=== PATIENT | male | born 1945 | race Caucasian/White ===

== ENCOUNTER → 2019-08-13 16:47 | Outpatient (CLI) | payer MEDICARE, SELFPAY ==
[2019-08-12 15:17] VITALS: BMI 27.2
--- NOTE | 2019-08-13 16:50 | RAD_ITS ---
STUDY: X-RAY - LUMBAR SPINE REASON FOR EXAM: Male, 74 years old. LOW BACK PAIN, NO KNOWN INJURY TECHNIQUE: 3 view(s) of the lumbar spine were obtained. COMPARISON: None FINDINGS: Diffuse and significant abnormal sclerosis throughout the spine and pelvis is compatible with blastic metastatic disease of unknown origin. Usually in a male of this chronologic age the underlying malignancy is related to the prostate. Mild to moderate multilevel disc space narrowing and associated degenerative changes are present. There is slight levoscoliosis and slight straightening of the lumbar lordosis. No visualized acute fracture. RAD/Lumbar Spine 2 or 3 Views IMPRESSION: Diffuse and significant abnormal sclerosis throughout the spine and pelvis is compatible with blastic metastatic disease of unknown origin. Usually in a male of this chronologic age the underlying malignancy is related to the prostate. Electronically Signed: Devon Jo MD at 17:54 EDT , Service support ,
== END ==
PROVIDERS: Family Provider Family Medicine; PCP Family Medicine; Referring Provider Anesthesiology Pain Medicine; Visit Provider Anesthesiology Pain Medicine
DX: M54.9 Dorsalgia, unspecified (principal)
CPT/HCPCS: 72100

== ENCOUNTER → 2019-08-14 15:42 | Outpatient (CLI) | payer MEDICARE, SELFPAY ==
[2019-08-12 15:17] VITALS: BMI 27.2
--- NOTE | 2019-08-14 15:44 | CT_ITS ---
We are attempting to reach an attending provider to discuss findings. An addendum with communication details will be sent when the communication is complete. STUDY: CT CHEST WITH CONTRAST REASON FOR EXAM: Male, 74 years old. History of prostate cancer. History of pulmonary embolus. Evaluation for metastatic disease. RADIATION DOSAGE (If Supplied By Facility): CTDIvol = ( 15.37 ) mGy, DLP = ( 1578.39 ) mGycm TECHNIQUE: Transaxial imaging was performed following intravenous administration of IV Isovue 300 100. Multiplanar coronal and sagittal images were reformatted. Individualized dose optimization techniques were used for this CT. COMPARISON: None. FINDINGS: Pleural base mass like density of the axillary portion of the right upper lobe that measures approximately 2.4 x 1.8 x 2.1 cm that as additional spiculations to the pleura and an elongated broad linear extension toward the oblique fissure. Ovoid noncalcified nodule of the right middle lobe measuring 2.3 x 4.6 x 4.4 mm, image 91 series 6. Mild posterior right lower lobe atelectatic or chronic changes. The left lung is expanded and clear. Negative for pleural effusion. Normal heart and pericardium. Coronary calcifications. Normal mediastinum. Normal hilar regions. Nonocclusive embolus in the right lower lobe artery with occlusive tube partly occlusive embolus in at least 2 segmental branches of the right lower lobe filling defect in at least one right upper lobe artery, anterior left upper lobe artery, lingular artery and at least one branch of the left lower lobe artery. There is atherosclerotic calcification of the aortic arch with tortuosity and elongation of the aortic arch and descending thoracic aorta. Diffuse sclerotic and focal sclerotic lesions in all thoracic and upper lumbar vertebral bodies, sternum, manubrium scapula a and clavicles. Diffuse sclerotic lesions in the included humeral heads. Widespread sclerotic lesions of the ribs bilaterally. Negative for pathologic fracture. There is no demonstrated abnormality of the visualized upper abdomen. CT/Chest WITH Contrast IMPRESSION: Positive for ongoing pulmonary embolus in the right lower lobe artery extending into multiple segmental branches and at least one embolus to a right upper lobe artery. Embolus to anterior left upper lobe artery, lingular artery and at least one branch of the left lower lobe artery. Note that this exam is not a CTA and may not adequately exclude other peripheral pulmonary emboli. Pleural-based masslike density in the axillary portion of the right upper lobe which does not have the typical appearance of a metastatic lesion and may be a pulmonary infarct/Beal's hump. Indeterminate noncalcified 2.3 x 4.6 x 4.4 mm noncalcified nodule of the right middle lobe. No additional pulmonary masses or nodules. Extensive widespread osteoblastic metastatic disease of the thoracic spine, ribs, scapulas, manubrium, sternum and clavicles. Negative for pathologic fracture. Electronically Signed: Monica Hahn MD at 17:10 EDT , Service support ,
--- NOTE | 2019-08-14 15:44 | CT_ITS ---
We are attempting to reach an attending provider to discuss findings. An addendum with communication details will be sent when the communication is complete. STUDY: CT ABDOMEN AND PELVIS WITH CONTRAST REASON FOR EXAM: Male, 74 years old. History of prostate cancer RADIATION DOSAGE (If Supplied By Facility): CTDIvol = ( 15.37 ) mGy, DLP = ( 1578.39 ) mGycm TECHNIQUE: Transaxial images were obtained from the dome of the diaphragm to the symphysis pubis without oral contrast. IV 100mL Isovue-300 100 was administered. Sagittal and coronal images were reconstructed. Individualized dose optimization techniques were used for this CT. COMPARISON: Chest CT of 08/14/2019 FINDINGS: Lung bases described on chest CT of 08/14/2019 Normal liver. Normal gallbladder and extrahepatic biliary system. Normal spleen. Normal pancreas. Normal bilateral adrenal glands. Small calcifications are seen in the inferior right kidney. There is a small simple bilateral renal cysts. No hydronephrosis. Normal visualized stomach. No small bowel wall thickening or dilation. Normal colon. The appendix is visualized and appears normal. There is diffuse atherosclerotic calcification of the abdominal aorta, without a demonstrated aneurysm. Lobular filling defect in the lower IVC and left common iliac vein are identified. Patient has known pulmonary embolism/venous thromboembolism disease, according to history provided. Normal retroperitoneum. Normal urinary bladder. No pelvic sidewall adenopathy or iliac chain adenopathy. Anterior abdominal wall hernia containing small bowel note no evidence of hernia sac fluid or bowel wall thickening. Widespread osseous sclerosis involving multiple ribs, thoracolumbar spine, pelvis and proximal bilateral femurs. CT/Abdomen/Pelvis W IV Cont ONLY IMPRESSION: 1. Multifocal osteoblastic metastasis. 2. Ileo caval (left common iliac vein/IVC) thrombus. Patient has known pulmonary embolism. 3. Small periumbilical hernia containing small bowel but no evidence of bowel obstruction. 4. Nonobstructing right nephrolithiasis. 5. Simple bilateral renal cysts. Electronically Signed: Chuy Noyola MD ([place]) at 14:22 EST , Service support ,
== END ==
PROVIDERS: Family Provider Family Medicine; PCP Family Medicine; Referring Provider Internal Medicine Hematology & Oncology; Visit Provider Internal Medicine Hematology & Oncology
DX: C61 Malignant neoplasm of prostate (principal); C79.51 Secondary malignant neoplasm of bone; C77.9 Secondary and unspecified malignant neoplasm of lymph node, unspecified
CPT/HCPCS: 71260; 74177; Q9967

== ENCOUNTER 2019-08-14 18:17 | Observation (INO) | payer MEDICARE, SELFPAY ==
[2019-08-12 15:17] VITALS: BMI 27.2
[2019-08-14 18:18] VITALS: BP 118/76; PULSE 93; RESP 17; TEMP 36.4; O2SAT 95; BMI 27.1
--- NOTE | 2019-08-14 18:39 | ED.VISSUMM ---
- ER Visit Summary Date of Service: 08/14/19 Chief Complaint: Back pain History of Present Illness: The patient is a 74 M who presents with back pain that became worse today. Patient states it is in his lower thoracic area. Patient had an outpatient CT scan of his chest today which showed multiple pulmonary emboli in the segmental branches of the right lower lobe and at least one embolus in the right upper lobe. There is also an embolus in the left upper lobe, lingual artery, and one branch of the left lower lobe. Patient denies any chest pain. Patient denies any shortness of breath that is worse than usual. Patient admits to some mild nausea but denies any vomiting. Physical Examination: Vital signs are stable. Patient is afebrile. Patient is in no acute distress. Oral mucosa is pink and moist. Neck is supple. Trachea is midline. There is no JVD noted. Heart was regular rate and rhythm. Lungs are clear and equal bilaterally. Abdomen is soft. Bowel sounds are normal. There is no tenderness. There is no guarding noted. Skin is warm dry. Cranial nerves II through XII are intact. There are no focal motor or sensory deficits noted. Extremities are intact. There is no tenderness or edema. Test Results: Outpatient CT report was reviewed which showed multiple bilateral pulmonary emboli. Patient states he had a INR checked this morning and was 3.2. CBC showed a mild anemia with hemoglobin of 9.6 and hematocrit 31.8. Basic metabolic profile was essentially within normal limits. INR was repeated here and was 2.3. Emergency Department Course and Treatment: Patient was given a dose of Lovenox here. Case was discussed with the hospitalist. Patient will be admitted to the hospital for observation. Disposition: Admit to hospital Impression: Multiple pulmonary emboli This note was generated with [employer] dictation software. It may contain incorrect words, spelling, and punctuation that were not noted in review of the chart prior to signing ED Disposition - Plan for ED Patient: Disposition: Acute Care Hospital [facility] Diagnosis: Multiple pulmonary emboli Referrals: Praful Blevins MD [Primary Care Provider] -
[2019-08-14] MEDS: Enoxaparin 100 MG/ML Syringe 90 MG SC (18:56)
[2019-08-14 19:16] LABS: Absolute Lymphocyte Count 1.12 X10^3/uL (0.83-4.51); Absolute Neutrophil Count 3.7 X10^3/uL (2.0-7.7); Basophil# 0.02 X10^3/uL; Basophil% 0.4 % (0-1); Eosinophils% 3.6 % (0-5); Hematocrit 31.8 % (40-54); Hemoglobin 9.6 g/dL (13.0-16.5); Lymphocyte # 1.12 X10^3/ul (4.0); Lymphocyte % 20.1 % (19-41); Mean Corp Hgb Conc 30.2 g/dL (32-36); Mean Corpuscular Hgb 27.2 pg (27.0-32.0); Mean Corpuscular Volume 90.1 fL (80-94); Mean Platelet Vol. 9.2 fl (6.2-12.0); Monocyte# 0.43 X10^3/uL; Monocyte% 7.7 % (0-10); NRBC Flagged by Analyzer 0.4 % (0-5); Neutrophil # 3.73 X10^3/uL (2.7-7.7); Neutrophil % 67.1 % (47-70); Platelet Count 211 K/mm3 (150-450); RBC Distribution Width CV 14.7 % (11.6-14.6); RBC Distribution Width SD 48.3 fl (35.1-43.9); Red Blood Count 3.53 M/mm3 (4.6-6.2); White Blood Count 5.6 K/mm3 (4.4-11.0)
[2019-08-14 19:23] LABS: Anion Gap 8 (5-15); BUN 23 mg/dL (7-18); BUN/Creat Ratio 33.6 RATIO (10-20); Calcium,Total 8.1 mg/dL (8.5-10.1); Chloride 108 mmol/L (98-107); Creatinine, Serum 0.68 mg/dL (0.70-1.30); EST Glomerular Filtration Rate 120 mL/min (>60); Est Glom Filt Rate - Afr Amer 145 mL/min (>60); Estimated Creatinine Clearance 66.92 ml/min; Glucose 122 mg/dL (74-106); Potassium 3.7 mmol/L (3.5-5.1); Sodium Level 140 mmol/L (136-145)
[2019-08-14 19:41] LABS: International Normalized Ratio 2.3
[2019-08-14 19:42] LABS: Partial Thromboplast Time 51.2 Seconds (24.1-36.2)
--- NOTE | 2019-08-14 20:00 | PCM.HP.STD ---
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 Because of his metastatic prostate cancer, patient had a full body CT. Because his chest CT showed multiple PEs patient was instructed to come to the emergency department. Patient denies any new symptoms. Denies any shortness of breath. He has generalized body pain he does not think it any difference from previous. On the day of presentation his INR was 3.2 so he was told to hold his Coumadin. At the Emergency Department his INR was 2.3. Past Medical History Past Medical History (Chronic Problems): Chronic Problems (Last Reviewed 08/14/19 @ 22:27 by Andrey Strickland MD) Prostate cancer (Chronic) Bone metastases (Chronic) Regional lymph node metastasis present (Chronic) Pulmonary embolism (Chronic) Medical History: Medical History (Last Reviewed 08/14/19 @ 22:27 by Andrey Strickland MD) Allergic rhinitis J30.9 BENIGN PROSTATIC HYPERTROPHY Cancer of prostate C61 Erectile dysfunction N52.9 GERD (gastroesophageal reflux disease) K21.9 High triglycerides E78.1 Neuropathy G62.9 Nocturia R35.1 Rising PSA level R97.20 TRENT (stress urinary incontinence), male N39.3 Hypertension I10 Allergies losartan Adverse Reaction (Severe, Verified 08/14/19 19:08) Rash Home Medications: Ambulatory Orders Medication Instructions Recorded Oxycodone HCl/Acetaminophen 1 tab PO BID 07/23/19 [Percocet 5/325] Amlodipine [Norvasc] 2.5 mg PO DAILY 07/28/19 Temazepam [Restoril] 30 mg PO QHS PRN PRN 07/28/19 Warfarin Sodium [Jantoven] 3 mg PO DAILY 08/12/19 Acetaminophen [Tylenol Extra 500 mg PO BID 08/14/19 Strength] Acetaminophen [Tylenol] 1,000 mg PO DAILY 08/14/19 Calcium Carbonate/Vitamin D3 1 tab PO DAILY 08/14/19 [Calcium 600 + Vit D Tablet] Denosumab [Xgeva] 120 mg SQ UD 08/14/19 Lupron Depot 1 injectable IM UD 08/14/19 Warfarin Sodium [Jantoven] 1.5 mg PO FR 08/14/19 Surgical History: Surgical History (Last Reviewed 08/14/19 @ 22:27 by Andrey Strickland MD) History of knee surgery Z98.890 RIGHT KNEE History of prostatectomy Z90.79 07-22-2012 Dr. Tony Penaloza Procedure done robotically Smoking Status: Never smoker Alcohol: None - *Family History Maternal Family History: Family History (Last Reviewed 08/14/19 @ 22:27 by Andrey Strickland MD) Sister Malignant neoplasm of female breast Mother Hypertension Review of Systems Constitutional: Denies: Chills, Fever, Weight Change HEENT: Denies: Head Aches, Sinus Congestion, Sinus Drainage Cardiovascular: Denies: Chest Pain, Palpitations Respiratory: Denies: Cough, Shortness of breath at rest, Sputum production Gastrointestinal: Reports: Abdominal Pain. Denies: Nausea, Vomiting Genitourinary: Denies: Dysuria Musculoskeletal: Reports: Muscle pain. Denies: Joint Pain, Joint Tenderness Skin: Denies: Rash, Wounds Neurological: Denies: Numbness, Tingling, Focal weakness Psychiatric: Denies: Anxiety, Depression, Homicidal Ideations, Suicidal Ideations Hematologic/ Lymphatic: Denies: Easy Bruising, Easy Bleeding VTE Information - Inpt Only VTE Present on Admission: Yes - Acute multiple PEs VTE Mechan Device Prophylaxis: None VTE Pharm Prophylaxis ordered?: No Reason prophylaxis not ordered:: Treatment Not Indicated - Started on Lovenox for acute PE. Patient Problems: Active and Suspected Problems (Last Reviewed 08/14/19 @ 22:27 by Andrey Strickland MD) Multiple pulmonary emboli (Acute) - Physical Exam Vitals/I&O's: Vital Signs Temp Pulse Resp BP Pulse Ox 97.5 F L 93 17 118/76 95 08/14/19 18:18 08/14/19 18:18 08/14/19 18:18 08/14/19 18:18 08/14/19 18:18 Oxygen Delivery Method Room Air Weight: 85.729 kg Body Mass Index (BMI) 27.1 General: Alert, Oriented x3, Cooperative HEENT: Atraumatic, PERRLA, EOMI, Normocephalic Neck: Supple, No JVD, Negative Carotid Bruits Lungs: Clear to auscultation, Normal air movement Cardiovascular: Regular rate, No murmurs Abdomen: Bowel Sounds Present, Soft, Non Tender Extremities: No edema, Capillary Refill Less than 3 Seconds Skin: No rashes, No breakdown Musculoskeletal: No Tenderness to Palpation of Joints or Extremities Neurological: Cranial nerves II-XII grossly intact Psych/Mental Status: Normal Affect, Appropriate Laboratory Results 08/14/19 19:00: WBC 5.6, RBC 3.53 L, Hgb 9.6 L, Hct 31.8 L, MCV 90.1, MCH 27.2, MCHC 30.2 L, RDW Std Deviation 48.3 H, RDW Coeff of Daria 14.7 H, Plt Count 211, MPV 9.2, Immature Gran % (Auto) 1.100 H, Neut % (Auto) 67.1, Lymph % (Auto) 20.1, [place] % (Auto) 7.7, Eos % (Auto) 3.6, Baso % (Auto) 0.4, Absolute Neuts (auto) 3.7, Absolute Lymphs (auto) 1.12, Nucleated RBC % 0.4 08/14/19 19:00: PT 25.0 H, INR 2.3, APTT 51.2 H 08/14/19 19:00: Sodium 140, Potassium 3.7, Chloride 108 H, Carbon Dioxide 24.0, Anion Gap 8, BUN 23 H, Creatinine 0.68 L, Estim Creat Clear Calc 66.92, Est GFR (MDRD) Af Amer 145, Est GFR (MDRD) Non-Af 120, BUN/Creatinine Ratio 33.6 H, Glucose 122 H, Calcium 8.1 L Assessment/Plan All Active Problems (Last Reviewed 08/14/19 @ 22:27 by Andrey Strickland MD) Multiple pulmonary emboli (Acute) The patient is a 74 year old M with a significant history of right upper lobe lung PE on Coumadin;metastatic prostate adenocarcinoma s/p radical prostatectomy with multiple PEs. Multiple pulmonary emboli Outpatient chest CT showed multiple pulmonary emboli and a pleural-based masslike density in the axillary portion of the right upper lobe. Radiologist thinks upper lobe does not have the typical appearance of a metastatic lesion and may be a pulmonary infarct/[facility]'s home. Will get an echo Placed on pcu on telemetry. Received Lovenox at the ED. continue Lovenox. Home Coumadin. Likely Coumadin failure since INR is therapeutic to supratherapeutic yet patient had multiple clots. Health Systems Analyst/oncology consult. Lung nodule There was an indeterminate noncalcified 2.3 x 4.6 x 4.4 mm noncalcified nodule of the right middle lobe. With his metastatic disease I do not believe this may need any further interventions. Oncologist consulted. Metastatic Prostate Cancer On home Denosumab and Lupron Depot Oncology consult Home pain regimen continued Insomnia Restoril continued Hypertension On presentation his blood pressure was stable in regard to his age. Amlodipine continued Trend blood pressure and adjust blood pressure medications. DVT prophylaxis Not indicated since patient is on therapeutic dose of Lovenox for acute multiple PEs. Code Visit OBSV E&M: [id number] Initial observation care L3
[2019-08-14 20:42] VITALS: BP 149/76; PULSE 87; RESP 18; O2SAT 93
[2019-08-14 21:03] VITALS: BMI 26.9
[2019-08-14 21:15] VITALS: BP 130/71; PULSE 79; RESP 20; TEMP 37.3; O2SAT 95
--- NOTE | 2019-08-14 21:28 | ECHOD_ITS ---
Reason For Study: EMBOLI Procedure This was a 2D Doppler, Color Flow transthoracic echocardiogram. The exam was of adequate technical quality. Exam performed portable in patient room. Left Ventricle Normal LV size. Left ventricular systolic function is normal. The estimated ejection fraction is 65 %. The global longitudinal strain = -22 % (normal). No evidence for diastolic dysfunction. No regional wall motion abnormalities noted. Right Ventricle Normal RV size. Normal systolic function. Atria The left atrium is mildly enlarged. Normal right atrium. No doppler evidence for ASD. Bubble contrast study negative for right to left interatrial shunt. Mitral Valve There is no mitral annular calcification. Mild diffuse mitral valve thickening. Trivial mitral valve insufficiency. Tricuspid Valve Normal tricuspid valve. Trivial tricuspid valve insufficiency. Right ventricular systolic pressure estimated to be 37 mmHg. Aortic Valve Trisinus/trileaflet aortic valve. Normal aortic valve. Pulmonic Valve The pulmonic valve is not well visualized. Great Vessels Mildly dilated aortic root. Pericardium/Pleural No pericardial effusion. Medication Performed a rapid injection of agitated mix of 9 cc saline and 1cc air to assess for atrial septal defect. MMode/2D Measurements & Calculations LVIDd: 5.1 cm IVSd: 0.90 cm Ao root diam: 4.1 cm LVIDs: 3.4 cm LVPWd: 1.0 cm FS: 33.0 % LAV(MOD-bp): 65.3 ml LA A4 area: 20.2 cm2 LA dimension(2D): 4.3 cm LAV(MOD-bp) Indexed: 32.0 ml/m2 LAV(MOD-sp2): 71.5 ml LAV(MOD-sp4): 58.5 ml RA A4 area: 13.7 cm2 Time Measurements MV dec time: 0.33 sec Doppler Measurements & Calculations MV E max patrick: 57.8 cm/sec Lat Peak E' Patrick: 11.6 cm/sec Med Peak E' Patrick: 7.1 cm/sec MV A max patrick: 95.0 cm/sec E/E' lat: 5.0 E/E' med: 8.1 MV E/A: 0.61 Ao V2 max: 150.0 cm/sec LV V1 max: 143.3 cm/sec PA V2 max: 95.8 cm/sec Ao max P.0 mmHg LV V1 max P.2 mmHg TR max patrick: 289.5 cm/sec TR max P.6 mmHg Interpretation Summary Left ventricular systolic function is normal. The estimated ejection fraction is 65 %. The global longitudinal strain = -22 % (normal). The left atrium is mildly enlarged. Mild diffuse mitral valve thickening. Trivial mitral valve insufficiency. Trivial tricuspid valve insufficiency. Mildly dilated aortic root. Right ventricular systolic pressure estimated to be 37 mmHg. No evidence for diastolic dysfunction. Bubble contrast study negative for right to left interatrial shunt. Ordering Physician: Andrey Strickland Referring Physician: Kris Blevins Performed By: Anabella Rahman RDCS, RVT
[2019-08-14 21:31] VITALS: BMI 26.9
[2019-08-14 22:22] VITALS: PULSE 86
[2019-08-14] MEDS: Acetaminophen 500 MG Tablet PO (23:00)
[2019-08-14] MEDS: oxyCODONE 5 MG Tablet PO (23:01)
[2019-08-14 23:05] VITALS: PULSE 87
[2019-08-15] VITALS (8 sets, daily range): BP systolic 122–136; BP diastolic 72–77; PULSE 71–89; RESP 16; TEMP 36.8; O2SAT 91–97
[2019-08-15] MEDS: Enoxaparin 100 MG/ML Syringe 90 MG SC (06:00)
[2019-08-15 06:06] LABS: Absolute Lymphocyte Count 1.23 X10^3/uL (0.83-4.51); Absolute Neutrophil Count 2.9 X10^3/uL (2.0-7.7); Basophil# 0.02 X10^3/uL; Basophil% 0.4 % (0-1); Eosinophil# 0.16 X10^3/uL; Eosinophils% 3.5 % (0-5); Hematocrit 30.1 % (40-54); Hemoglobin 9.2 g/dL (13.0-16.5); Lymphocyte # 1.23 X10^3/ul (4.0); Lymphocyte % 26.6 % (19-41); Mean Corp Hgb Conc 30.6 g/dL (32-36); Mean Corpuscular Hgb 27.6 pg (27.0-32.0); Mean Corpuscular Volume 90.4 fL (80-94); Mean Platelet Vol. 9.2 fl (6.2-12.0); Monocyte# 0.31 X10^3/uL; Monocyte% 6.7 % (0-10); NRBC Flagged by Analyzer 0 % (0-5); Neutrophil # 2.85 X10^3/uL (2.7-7.7); Neutrophil % 61.7 % (47-70); Platelet Count 200 K/mm3 (150-450); RBC Distribution Width CV 14.6 % (11.6-14.6); Red Blood Count 3.33 M/mm3 (4.6-6.2); White Blood Count 4.6 K/mm3 (4.4-11.0)
[2019-08-15] MEDS: oxyCODONE 5 MG Tablet PO (09:49)
[2019-08-15] MEDS: amLODIPine 2.5 MG Tablet PO (09:51)
[2019-08-15] MEDS: Acetaminophen 500 MG Tablet PO (09:52)
[2019-08-15] MEDS: Calcium Carb/Vitamin D 1 TABLET Tablet PO (09:52)
--- NOTE | 2019-08-15 11:50 | DCINST_ITS ---
- Discharge Diagnoses Current Active Problems: Current Active and Chronic Problems (Last Reviewed 08/14/19 @ 22:27 by Andrey Strickland MD) Multiple pulmonary emboli (Acute) Prostate cancer (Chronic) Bone metastases (Chronic) Regional lymph node metastasis present (Chronic) Pulmonary embolism (Chronic) You will use the following diet at home:: No restrictions Your food should be the consistency of: Regular Your liquids should be the consistency of: Regular/Thin Discharge Activity: Return to Normal Activity Allergies/Adverse Reactions: Allergies losartan Adverse Reaction (Severe, Verified 08/14/19 19:08) Rash Medications to take at Discharge Oxycodone HCl/Acetaminophen [Percocet 5-325] 1 tab PO BID 07/23/19 Amlodipine [Norvasc] 2.5 mg PO DAILY 07/28/19 Temazepam [Restoril] 30 mg PO QHS PRN PRN 07/28/19 Acetaminophen [Tylenol] 1,000 mg PO DAILY 08/14/19 Acetaminophen [Tylenol] 500 mg PO BID 08/14/19 Calcium Carbonate/Vitamin D3 [Calcium 600 + Vit D Tablet] 1 tab PO DAILY 08/14/19 Denosumab [Xgeva] 120 mg SQ UD 08/14/19 Lupron Depot 1 injectable IM UD 08/14/19 Enoxaparin [Lovenox] 90 mg SUBCUT Q12 #28 syringe 08/15/19 The following prescriptions were given: Enoxaparin [Lovenox] 90 mg SUBCUT Q12 #28 syringe Transmission Status: Pending to [id number] [place] [address] Primary Care Physician: Praful Blevins MD [Primary Care Provider] - Please follow up with your Primary Care Physician in: 1-2 weeks Test Results: Test results from this visit will be discussed in further detail at your follow- up appointment, if applicable. Please Follow Up With: Jorge Pantoja MD When: 1-2 weeks Proposed Discharge Date: 08/15/19
--- NOTE | 2019-08-15 12:49 | CON.PCM_ITS ---
Subjective Date of Service:: 08/15/19 Chief Complaint: PE History of Present Illness: Mr. Lyle Mac is a very pleasant 74-year-old male with a PMH positive for HTN, PE and metastatic prostate cancer. H/o prostate ca as follows: May 2012: Diagnosed with prostate adenocarcinoma Primitivo combined score 7 (3+4) involving 40% of the specimen from the right prostate (4/4 cores). Diagnosis was made after finding an elevated PSA on screening, to his recollection was less than 10. July 2012 underwent radical prostatectomy with bilateral pelvic lymph node dissection revealing prostate adenocarcinoma, Burt combined score 7, invo lving 18% of the prostate, extraprostatic extension evident in the posterior aspect of the right lobe and right seminal vesicle soft tissue with a positive margin 0.005 cm long adjacent to the right seminal vesicle. 11 dissected lymph nodes were negative for metastatic cancer and pathologic stage III and was T3B,N0. Surgery was at [facility]. Postoperatively he was followed up. 2012: PSA did decline to less than 1 but was never undetectable. 2013: Rising PSA treated with external beam radiation to the pelvis at [place]. 2017: Rising PSA with a negative bone scan observed. Was incidentally found to have pulmonary embolism and was started on anticoagulant therapy with warfarin. February 2019: PSA continues to rise peak at 12, CT scan of the abdomen and pelvis reported heterogeneous sclerosis throughout the visualized skeleton concerning for metastatic bone disease and mildly prominent retroperitoneal lymph nodes that were increasing in size from previous studies from 2018. No follow-up bone scan was obtained. February 2019: was seen by medical oncology at [place] and started LHRH agonist therapy with a 6 months Lupron injection with Casodex cover in the first 2 weeks and started bone supportive therapy with Xgeva (was prescribed every 3 months last received May 2019). Despite the Casodex cover he did experience a flare of bone pain with the initiation of LHRH agonist therapy. May 2019: PSA down to 10. August 12, 2019: Transfer care to [facility]. PSA 35.10. Patient underwent restaging dolan-CT 08/14/19 and multiple pulmonary emboli were in cidentally noted on imaging. He was subsequently evaluated at [facility] ED, INR 2.3 at that time. He was given Lovenox (1mg/kg) and admitted for observation. In the last year, his warfarin has been managed by a coumadin clinic in [place]. Per patient self report his INR has been up and down out of therapeutic range requiring multiple dose modifications, he attributes to dietary changes as appetite has been poor. In fact, he has lost approx 30 lb in the last 4 months. Has been experiencing intermittent fevers/chills x 3 weeks while at home. States his pcp did obtain a urine culture last week & was told it was fine. He has been afebrile during the course of this admission. Specifically denies dysuria, hematuria, increased frequency from baseline and flank pain. Cancer r/t back pain well controlled at the present time, Dr. Beckett recently increased oxycodone to BID from daily dosing. Noting mild constipation. Patient spouse attentive and present during interview. Past Medical History: Chronic Problems (Last Reviewed 08/14/19 @ 22:27 by Andrey Strickland MD) Prostate cancer (Chronic) Bone metastases (Chronic) Regional lymph node metastasis present (Chronic) Pulmonary embolism (Chronic) Past Medical/Surgical History: Past Medical History - Most Recent Inpatient Visit Past Medical History Start: 08/14/19 21:03 Text: Status: Complete Freq: ONCE Protocol: Document 08/14/19 21:31 [facility] (Rec: 08/14/19 21:39 [facility] [id number]) BMI Required to complete PMH What is Patient's BMI 26.9 Past Medical History Unable History Recalled No Query Text:Pt Unable/Family Not Present Neurologic Medical History Hx Stroke/TIA No Hx Dementia/Alzheimer's No Hx Parkinson's Disease No Hx Seizures No Hx Multiple Sclerosis No Hx Migraines No Cardiac Medical History VTE Present on Admission No Hx of Deep Vein Thrombosis/VTE/PE Yes Hx Hypertension Yes Hx Chest Pain/Angina No Hx Heart Attack No Hx Cardiac Surgery/Stents/Etc. No Hx Heart Failure No Hx Pacemaker/AICD No Hx Irregular Heartbeat and/or Afib No Hx Anticoagulant Therapy Yes: Warfarin Query Text:(Coumadin, Aspirin, Plavix, Xarelto, etc.) Hx Pain in Legs when Walking/Leg Cramps No Respiratory Medical History Hx COPD No Hx Emphysema No Hx Smoking No Smoking Status Never smoker Hx Tobacco Use in last 12 months No Hx Sleep Apnea No Do you snore loudly (louder than talking Yes or can be heard through closed doors)? Do you often feel tired/ fatigued/ No sleepy during daytime? Has anyone observed you stop breathing No during sleep? STOP Results Positive GI Medical History Hx Ulcer No Hx Hepatitis No Hx Cirrhosis No Hx GI Bleed No Hx Unplanned Weight Loss Yes Comments hormone therapy for prostate CA started around February, states this is when weight loss started Genitourinary Medical History Indwelling Catheter in Place on Arrival/ No Admission Hx Renal Disease No Hx Dialysis No Musculoskeletal History Hx Arthritis Yes Hx Rheumatoid Arthritis No Endocrine Medical History Hx Diabetes No Hx Thyroid Disease No Hematologic Medical History Hx of Blood Transfusion No Hx of Transfusion in last 3 Months No Ever experience any problems with No transfusion(s)? Hx of Preganancy in last 3 Months N/A Nurse Filling Out Transfusion & OHALE Questions: Date: 08/14/19 Time: 21:37 Psycho/Social Medical History Hx Depression Yes Hx Anxiety Yes Hx Behavior Disorder No Hx Alcohol Use No Hx Substance Use No Other Medical History Hx Blood Disorders No Hx Anemia Yes Hx Cancer Yes: prostate Hx Drug Resistant Organism No Wound/Pressure Injury Present on Arrival No /Admission Query Text:If yes, chart assessment in Shift/Clinical Findings Central Line/PICC/VAD Present on Arrival No /Admission Antibiotics within last 7 days? No Risk for Readmission Number of Risk Factors 6 At Risk for Readmission Patient is At Risk For Readmission Patient is eligible for Call Back Y Past Medical History (Last Reviewed 08/14/19 @ 22:27 by Andrey Strickland MD) Allergic rhinitis (Acute) BENIGN PROSTATIC HYPERTROPHY (Acute) Cancer of prostate (Acute) Erectile dysfunction (Acute) GERD (gastroesophageal reflux disease) (Acute) High triglycerides (Acute) Neuropathy (Acute) Nocturia (Acute) Rising PSA level (Acute) TRENT (stress urinary incontinence), male (Acute) Hypertension (Chronic) Past Surgical History (Last Reviewed 08/14/19 @ 22:27 by Andrey Strickland MD) History of knee surgery (Acute) History of prostatectomy (Acute) Maternal Family History: Family History (Last Reviewed 08/14/19 @ 22:27 by Andrey Strickland MD) Sister Malignant neoplasm of female breast Mother Hypertension - Social History Smoking Status: Never smoker Alcohol: None Allergies/Adverse Reactions: Allergy/AdvReac Type Severity Reaction Status Date / Time losartan AdvReac Severe Rash Verified 08/14/19 19:08 Review of Systems Constitutional:: Reports: Weakness, Fatigue, Weight loss, Appetite change. Denies: Fever, Sweats, Chills Cardiovascular:: Denies: Chest pain, Palpitations, Dyspnea on exertion, Orthopnea, PND, Shortness of breath Respiratory: Denies: Cough, Hemoptysis, Shortness of Breath, Shortness of breath upon exertion, Wheezing Gastrointestinal:: Reports: Constipation - LBM 08/13/19. Denies: Abdominal pain, Nausea, Vomiting, Diarrhea, Hematochezia Genitourinary: Denies: Dysuria, Hematuria, 15, Flank pain Musculoskeletal:: Reports: Back pain. Denies: Myalgia Skin: Denies: Rash, Skin Changes, Wounds Neurological:: Denies: Headache, Dizziness, Numbness, Tingling, Visual changes, Tinnitus, Hearing loss Psychiatric: Denies: Anxiety, Depression, Homicidal Ideations, Suicidal Ideations Vital Signs Height 5 ft 10.5 in Weight: 190 lb 0.615 oz Weight in Pounds 190.0 lbs Pulse Ox 96 Temperature 98.3 F Pulse Rate 83 Respiratory Rate 16 Blood Pressure 122/72 Blood Pressure Position Semi-Fowlers - Physical Exam General: Alert, Oriented x3, No apparent distress HEENT: Atraumatic, PERRLA, EOMI, Normocephalic, - - wears glasses Oropharynx:: Negative for: Dry mucosa, Ulcerated lesions Neck:: Supple, Trachea midline. Negative for: JVD, bilateral Cardiac:: Regular rate, Regular rhythm, Normal S1, Normal S2. Negative for: Murmur Lungs: Clear to auscultation, Excusion symmetrical. Negative for: Rhonchi, Wheezes Abdomen:: Bowel sounds x 4, Soft, Non-tender, Non-distended. Negative for: Hepatosplenomegaly Extremities:: Capillary refill <3 sec. Negative for: Cyanosis, Edema - careful attention paid to lower extremities, Calf tenderness, Diminished peripheral pulses Neurological: Neuro grossly intact Skin:: Negative for: Lesions, Rash, Petechiae, Ecchymosis Psychiatric:: Appropriate affect, Euthymic Lymphatics:: Negative for: Cervical lymphadenopathy, Supraclavicular lym phadenopathy, Axillary lymphadenopathy Laboratory Data: Laboratory Tests 08/15/19 08/14/19 08/14/19 Range/Units 05:41 19:00 19:00 WBC 4.6 (4.4-11.0) K/mm3 RBC 3.33 L (4.6-6.2) M/mm3 Hgb 9.2 L (13.0-16.5) g/dL Hct 30.1 L (40-54) % MCV 90.4 (80-94) fL MCH 27.6 (27.0-32.0) pg MCHC 30.6 L (32-36) g/dL RDW Std Deviation 48.0 H (35.1-43.9) fl RDW Coeff of Daria 14.6 (11.6-14.6) % Plt Count 200 (150-450) K/mm3 MPV 9.2 (6.2-12.0) fl Immature Gran % (Auto) 1.100 H (0.0-0.9) % Neut % (Auto) 61.7 (47-70) % Lymph % (Auto) 26.6 (19-41) % Hooker % (Auto) 6.7 (0-10) % Eos % (Auto) 3.5 (0-5) % Baso % (Auto) 0.4 (0-1) % Absolute Neuts (auto) 2.9 (2.0-7.7) X10^3/uL Absolute Lymphs (auto) 1.23 (0.83-4.51) X10^3/uL Nucleated RBC % 0 (0-5) % PT 25.0 H (11.7-14.9) SECONDS INR 2.3 APTT 51.2 H (24.1-36.2) Seconds Sodium 140 (136-145) mmol/L Potassium 3.7 (3.5-5.1) mmol/L Chloride 108 H (98-107) mmol/L Carbon Dioxide 24.0 (21.0-32.0) mmol/L Anion Gap 8 (5-15) BUN 23 H (7-18) mg/dL Creatinine 0.68 L (0.70-1.30) mg/dL Estim Creat Clear Calc 66.92 ml/min Est GFR (MDRD) Af Amer 145 (>60) mL/min Est GFR (MDRD) Non-Af 120 (>60) mL/min BUN/Creatinine Ratio 33.6 H (10-20) RATIO Glucose 122 H (74-106) mg/dL Calcium 8.1 L (8.5-10.1) mg/dL 08/14/19 Range/Units 19:00 WBC 5.6 (4.4-11.0) K/mm3 RBC 3.53 L (4.6-6.2) M/mm3 Hgb 9.6 L (13.0-16.5) g/dL Hct 31.8 L (40-54) % MCV 90.1 (80-94) fL MCH 27.2 (27.0-32.0) pg MCHC 30.2 L (32-36) g/dL RDW Std Deviation 48.3 H (35.1-43.9) fl RDW Coeff of Daria 14.7 H (11.6-14.6) % Plt Count 211 (150-450) K/mm3 MPV 9.2 (6.2-12.0) fl Immature Gran % (Auto) 1.100 H (0.0-0.9) % Neut % (Auto) 67.1 (47-70) % Lymph % (Auto) 20.1 (19-41) % Hooker % (Auto) 7.7 (0-10) % Eos % (Auto) 3.6 (0-5) % Baso % (Auto) 0.4 (0-1) % Absolute Neuts (auto) 3.7 (2.0-7.7) X10^3/uL Absolute Lymphs (auto) 1.12 (0.83-4.51) X10^3/uL Nucleated RBC % 0.4 (0-5) % PT (11.7-14.9) SECONDS INR APTT (24.1-36.2) Seconds Sodium (136-145) mmol/L Potassium (3.5-5.1) mmol/L Chloride (98-107) mmol/L Carbon Dioxide (21.0-32.0) mmol/L Anion Gap (5-15) BUN (7-18) mg/dL Creatinine (0.70-1.30) mg/dL Estim Creat Clear Calc ml/min Est GFR (MDRD) Af Amer (>60) mL/min Est GFR (MDRD) Non-Af (>60) mL/min BUN/Creatinine Ratio (10-20) RATIO Glucose (74-106) mg/dL Calcium (8.5-10.1) mg/dL Assessment and Plan Mr. Lyle Mac is a very pleasant 74-year-old male with a PMH positive for HTN, PE and metastatic prostate cancer. He had been receiving oncology care at in [place] until establishing with Dr. Pantoja on 08/13/2019. 1. Multiple pulmonary emboli (Acute)- Incidentally noted on restaging CT chest obtained 08/14/2019, occurred while on warfarin. (Although per patient self- report he has often been supra and subtherapeutic-with multiple dose modifications required of late). Fever of unknown origin may be associated with PEs. Given the context of metastatic disease, patient will require lifelong anticoagulation. For now would recommend Lovenox 1.5 mg/kg daily upon discharge. 2. Prostate cancer-CT chest obtained yesterday demonstrated Extensive widespread osteoblastic metastatic disease of the thoracic spine, ribs, scapulas, manubrium, sternum and clavicles. Negative for pathologic fracture. In correlation with a rising PSA, now 35.10 clinical picture is indicative of disease progression. CT abdomen and pelvis obtained 08/14/2019?report is still pending. He is scheduled for dedicated bone scan on 08/19/2019. Confirmed he is taking calcium and vitamin D as advised at home. Corrected calcium 8.9. 3. Lung nodules- A pleural-based masslike density was identified in the axillary portion of the right upper lobe. I spoke with the radiologist, Dr. Hahn last evening. She is not convinced this is suggestive of metastatic disease- she is suspect this area is a pulmonary infarct/[facility]'s home. Also, there was an indeterminate noncalcified subcm nodule of the right middle lobe- Will investigate in the out patient setting. 4. Constipation- Likely r/t increase in opioid analgesia. Counseled on need for constipation prophylaxis upon returning home. 5. Hyperglobulinemia-as evidenced by a globulin level of 5.1, total protein is upper range of normal limit. Albumin low. Orders placed for serum protein electrophoresis with immunofixation and light chain assay. 6. Cancer related pain- Involves lower back. Pain well controlled on current analgesia. Managed by Dr. Beckett. Thank you for allowing me to participate in the care of Mr. Mac. Advised he follow-up with Dr. solares on 08/24/2019 as previously planned. Denice Pantoja, MSN, [employer], AOCNP Medications: Prescriptions This Visit Medication Instructions Recorded Acetaminophen [Tylenol] 1,000 mg PO DAILY 08/14/19 Acetaminophen [Tylenol] 500 mg PO BID 08/14/19 Calcium Carbonate/Vitamin D3 1 tab PO DAILY 08/14/19 [Calcium 600 + Vit D Tablet] Denosumab [Xgeva] 120 mg SQ UD 08/14/19 Lupron Depot 1 injectable IM UD 08/14/19 Enoxaparin [Lovenox] 90 mg SUBCUT Q12 #28 syringe 08/15/19 Medications Added to Medication List This Visit Category Date Time Status Acetaminophen [Tylenol] Med 08/15/19 12:00 Active 1,000 mg PO 1200 Amlodipine [Norvasc] Med 08/15/19 10:00 Active 2.5 mg PO DAILY Calcium Carb/Vitamin D [Os-Tru 500MG + D] Med 08/15/19 10:00 Active 1 tablet PO DAILY Enoxaparin [Lovenox] Med 08/15/19 07:00 Active 90 mg SC Q12 Ensure Enlive Med 08/15/19 10:00 Active 120 ml PO 4X/DAY Primary Care Provider: Kris Blevins MD Referring Provider: - Problem List (1) Multiple pulmonary emboli Status: Acute (2) Prostate cancer Status: Chronic (3) Cancer-related pain Status: Acute (4) Constipation due to opioid therapy Status: Acute (5) Hyperglobulinemia Status: Acute (6) Lung nodules Status: Acute
--- NOTE | 2019-08-15 13:29 | NURSING ---
This nurse reviewed charting of [facility]
--- NOTE | 2019-08-15 13:41 | DS.PCM_ITS ---
<Otf Ramirez - Last Filed: 08/15/19 13:41> Discharge Date and Diagnosis Date of Admission: 08/14/19 Date of Discharge: 08/15/19 - Primary Discharge Diagnosis Multiple BL PEs, 2/2 hypercoagulable state 2/2 cancer Prostate cancer with mets to bone Lung nodule - Secondary Discharge Diagnosis Chronic Problems (Last Reviewed 08/14/19 @ 22:27 by Andrey Strickland MD) Prostate cancer (Chronic) Bone metastases (Chronic) Regional lymph node metastasis present (Chronic) Pulmonary embolism (Chronic) Hospital Course and Treatment Imaging Results: Echo: Interpretation Summary Left ventricular systolic function is normal. The estimated ejection fraction is 65 %. The global longitudinal strain = -22 % (normal). The left atrium is mildly enlarged. Mild diffuse mitral valve thickening. Trivial mitral valve insufficiency. Trivial tricuspid valve insufficiency. Mildly dilated aortic root. Right ventricular systolic pressure estimated to be 37 mmHg. No evidence for diastolic dysfunction. Bubble contrast study negative for right to left interatrial shunt. CT/Chest WITH Contrast IMPRESSION: Positive for ongoing pulmonary embolus in the right lower lobe artery extending into multiple segmental branches and at least one embolus to a right upper lobe artery. Embolus to anterior left upper lobe artery, lingular artery and at least one branch of the left lower lobe artery. Note that this exam is not a CTA and may not adequately exclude other peripheral pulmonary emboli. Pleural-based masslike density in the axillary portion of the right upper lobe which does not have the typical appearance of a metastatic lesion and may be a pulmonary infarct/Beal's hump. Indeterminate noncalcified 2.3 x 4.6 x 4.4 mm noncalcified nodule of the right middle lobe. No additional pulmonary masses or nodules. Extensive widespread osteoblastic metastatic disease of the thoracic spine, ribs, scapulas, manubrium, sternum and clavicles. Negative for pathologic fracture. N.B. : The above information has been verbally conveyed by Monica Hahn MD to Lorin Pantoja NP, [employer], on 08/14/2019 18:36:43 (ET). Consults: Denice Pantoja - Oncology Operations: None Procedures: 2-D Echocardiogram Summary of Care Provided: Hospital Course: The patient is a 74 year old M with pmhx of prostate cancer with mets to the bone who was sent to the hospital for PEs. He had multiple BL PEs found on outpatient chest CT which also incidentally showed a noncalcified pulmonary nodule in the RML. He was admitted and started on lovenox. He had already been taking warfarin as an outpatient and his INR was therapeutic at the time of presentation so we considered this a warfarin failure. He had no respiratory issues and his vitals were stable. An echo was obtained with no acute issues as above. Oncology was consulted and recommended discharge on once daily lovenox for PEs. He had used lovenox at home in the past and felt this doing so again would not be an issue. He had no complaints the following day and was discharged home in stable condition. He will need follow up with his PCP in 1-2 weeks and his oncologist in 1-2 weeks. This patient was seen by Otf Ramirez PA-C under the supervision of Doctor Delgadillo. [] - Physical Exam Vitals/I&O's: Vital Signs Temp Pulse Resp BP Pulse Ox 98.2 F 89 16 133/77 H 94 08/15/19 13:20 08/15/19 13:20 08/15/19 13:20 08/15/19 13:20 08/15/19 13:20 Oxygen Delivery Method Room Air Weight: 190 lb 0.615 oz Body Mass Index (BMI) 26.9 Intake and Output for Last 24 Hours 08/13/19 08/14/19 08/15/19 23:59 23:59 23:59 Intake Total 120 / 120 620 / 620 Balance 120 / 120 620 / 620 General: Alert, Oriented x3, Cooperative HEENT: Atraumatic, PERRLA, EOMI, Normocephalic Neck: Supple, No JVD, Negative Carotid Bruits Lungs: Clear to auscultation, Normal air movement Cardiovascular: Regular rate, No murmurs Abdomen: Bowel Sounds Present, Soft, Non Tender Extremities: No edema, Capillary Refill Less than 3 Seconds Skin: No rashes, No breakdown Musculoskeletal: No Tenderness to Palpation of Joints or Extremities Neurological: Cranial nerves II-XII grossly intact Psych/Mental Status: Normal Affect, Appropriate, Alert and oriented to time, place, person, mood and affect Laboratory Results 08/14/19 19:00: WBC 5.6, RBC 3.53 L, Hgb 9.6 L, Hct 31.8 L, MCV 90.1, MCH 27.2, MCHC 30.2 L, RDW Std Deviation 48.3 H, RDW Coeff of Daria 14.7 H, Plt Count 211, MPV 9.2, Immature Gran % (Auto) 1.100 H, Neut % (Auto) 67.1, Lymph % (Auto) 20.1, Obion % (Auto) 7.7, Eos % (Auto) 3.6, Baso % (Auto) 0.4, Absolute Neuts (auto) 3.7, Absolute Lymphs (auto) 1.12, Nucleated RBC % 0.4 08/14/19 19:00: PT 25.0 H, INR 2.3, APTT 51.2 H 08/14/19 19:00: Sodium 140, Potassium 3.7, Chloride 108 H, Carbon Dioxide 24.0, Anion Gap 8, BUN 23 H, Creatinine 0.68 L, Estim Creat Clear Calc 66.92, Est GFR (MDRD) Af Amer 145, Est GFR (MDRD) Non-Af 120, BUN/Creatinine Ratio 33.6 H, Glucose 122 H, Calcium 8.1 L 08/15/19 05:41: WBC 4.6, RBC 3.33 L, Hgb 9.2 L, Hct 30.1 L, MCV 90.4, MCH 27.6, MCHC 30.6 L, RDW Std Deviation 48.0 H, RDW Coeff of Daria 14.6, Plt Count 200, MPV 9.2, Immature Gran % (Auto) 1.100 H, Neut % (Auto) 61.7, Lymph % (Auto) 26.6, Obion % (Auto) 6.7, Eos % (Auto) 3.5, Baso % (Auto) 0.4, Absolute Neuts (auto) 2.9, Absolute Lymphs (auto) 1.23, Nucleated RBC % 0 Discharge Diet: No Restrictions Discharge Activity: Return to Normal Activity Home Medications: Medications to take at Discharge Oxycodone HCl/Acetaminophen [Percocet 5-325] 1 tab PO BID 07/23/19 Amlodipine [Norvasc] 2.5 mg PO DAILY 07/28/19 Temazepam [Restoril] 30 mg PO QHS PRN PRN 07/28/19 Acetaminophen [Tylenol] 1,000 mg PO DAILY 08/14/19 Acetaminophen [Tylenol] 500 mg PO BID 08/14/19 Calcium Carbonate/Vitamin D3 [Calcium 600 + Vit D Tablet] 1 tab PO DAILY 08/14/19 Denosumab [Xgeva] 120 mg SQ UD 08/14/19 Lupron Depot 1 injectable IM UD 08/14/19 Enoxaparin [Lovenox] 90 mg SUBCUT Q12 #28 syringe 08/15/19 Following Prescrptions Were Given to Patient: Enoxaparin [Lovenox] 90 mg SUBCUT Q12 #28 syringe Transmission Status: Received by BILLY RENNER-Onelia DHALIWAL Primary Care Physician: Praful Blevins MD [Primary Care Provider] - Please follow up with your Primary Care Physician in: 1-2 weeks Please Follow Up With: Jorge Pantoja MD When: 1-2 weeks Disposition: Home Minutes spent on discharge:: 35 Patient Condition:: Stable Medical Necessity - Tobacco Use Smoking Status: Never smoker Meaningful Use Info Meaningful Use Diagnoses (Choose all that apply): VTE - VTE Anticoag overlap given w/in hospital stay or rx'd at dc?: No Pt receive overlap for 5 days?: No Reason overlap not ordered, prescribed, or given for 5 days: Procedure Not Indicated <Mady Delgadillo E - Last Filed: 08/15/19 14:36> Discharge Date and Diagnosis - Secondary Discharge Diagnosis Chronic Problems (Last Reviewed 08/14/19 @ 22:27 by Andrey Strickland MD) Prostate cancer (Chronic) Bone metastases (Chronic) Regional lymph node metastasis present (Chronic) Pulmonary embolism (Chronic) Hospital Course and Treatment Summary of Care Provided: Hospitalist note: Discharge summary above reviewed and I concur with the above discharge and treatment plan. Patient was admitted after he was found to have acute bilateral PEs on CTA chest that was done as outpatient. Patient was on Coumadin for history of PE and his INR was therapeutic upon admission. CTA chest that was done on August 14, 2019 revealed pulmonary emboli in the right lower lobe already extending into the multiple segmental branches including right upper lobe artery, PE to the anterior left upper lobe artery, left middle artery and at least 1 branch of the left lower lobe artery. Patient had a history of metastatic prostate cancer status post radical prostatectomy. Patient was treated with therapeutic Lovenox twice daily. He is considered failure of treatment of Coumadin because he developed acute PEs while on Coumadin with therapeutic INR. Routine blood work was remarkable for chronic anemia with stable hemoglobin, otherwise normal. 2D echocardiogram revealed ejection fraction of 65%, RVSP of 37 and bubble contrast study negative for [id number] shunt. Oncology consulted and recommended to start patient on Lovenox 1.5 mg/kg daily for life. Patient discharged home in a stable medical condition, discharged on Lovenox 1.5 mg/kg once daily, continued his previous home medications including Percocet for pain, plan to follow-up with oncology in 1 to 2 weeks, recommended follow-up with PCP in 1 to 2 weeks. - Physical Exam General: Alert, Oriented x3, Cooperative, No apparent distress. HEENT: Atraumatic, PERRLA, EOMI. Neck: Supple, No JVD, Negative Carotid Bruits, Trachea Midline, Thyroid Normal. Lungs: Diminished breath sounds bilateral, otherwise clear, No rhonchi, No wheeze, No rales. Cardiovascular: Regular rate, Regular Rhythm, Normal S1, Normal S2, PMI Normal. Abdomen: Bowel Sounds Present, Soft, Non Tender, Non-Distended, No Hepato-splenomegaly. Extremities: No clubbing, No cyanosis, No edema Skin: No rashes, No breakdown Neurological: Cranial nerves are intact, neuro grossly intact Vital Signs are stable. This note was generated with [employer] dictation software. It may contain incorrect words, spelling, and punctuation that were not noted in checking the note before signing. - Physical Exam Vitals/I&O's: Vital Signs Temp Pulse Resp BP Pulse Ox 98.2 F 89 16 133/77 H 94 08/15/19 13:20 08/15/19 13:20 08/15/19 13:20 08/15/19 13:20 08/15/19 13:20 Oxygen Delivery Method Room Air Weight: 190 lb 0.615 oz Body Mass Index (BMI) 26.9 Intake and Output for Last 24 Hours 08/13/19 08/14/19 08/15/19 23:59 23:59 23:59 Intake Total 120 / 120 620 / 620 Balance 120 / 120 620 / 620 Laboratory Results 08/14/19 19:00: WBC 5.6, RBC 3.53 L, Hgb 9.6 L, Hct 31.8 L, MCV 90.1, MCH 27.2, MCHC 30.2 L, RDW Std Deviation 48.3 H, RDW Coeff of Daria 14.7 H, Plt Count 211, MPV 9.2, Immature Gran % (Auto) 1.100 H, Neut % (Auto) 67.1, Lymph % (Auto) 20.1, Obion % (Auto) 7.7, Eos % (Auto) 3.6, Baso % (Auto) 0.4, Absolute Neuts (auto) 3.7, Absolute Lymphs (auto) 1.12, Nucleated RBC % 0.4 08/14/19 19:00: PT 25.0 H, INR 2.3, APTT 51.2 H 08/14/19 19:00: Sodium 140, Potassium 3.7, Chloride 108 H, Carbon Dioxide 24.0, Anion Gap 8, BUN 23 H, Creatinine 0.68 L, Estim Creat Clear Calc 66.92, Est GFR (MDRD) Af Amer 145, Est GFR (MDRD) Non-Af 120, BUN/Creatinine Ratio 33.6 H, Glucose 122 H, Calcium 8.1 L 08/15/19 05:41: WBC 4.6, RBC 3.33 L, Hgb 9.2 L, Hct 30.1 L, MCV 90.4, MCH 27.6, MCHC 30.6 L, RDW Std Deviation 48.0 H, RDW Coeff of Daria 14.6, Plt Count 200, MPV 9.2, Immature Gran % (Auto) 1.100 H, Neut % (Auto) 61.7, Lymph % (Auto) 26.6, Obion % (Auto) 6.7, Eos % (Auto) 3.5, Baso % (Auto) 0.4, Absolute Neuts (auto) 2.9, Absolute Lymphs (auto) 1.23, Nucleated RBC % 0 08/15/19 : Total Protein (PEP) Pending, IgG Pending, IgA Pending, IgM Pending, Albumin (GENNARO) Pending, Albumin/Globulin (GENNARO) Pending, [id number] GENNARO Pending, [id number] GENNARO Pending, Beta-Globulins (GENNARO) Pending, Gamma Globulins (GENNARO) Pending, GENNARO M-Shane Pending, Free [employer] LC, Quant Pending, Free Lambda LC, Quant Pending, Free [employer]/Lambda Ratio Pending Disposition: Home Minutes spent on discharge:: 27 Patient Condition:: Stable Meaningful Use Info Meaningful Use Diagnoses (Choose all that apply): None applicable Code Visit OBSV E&M: 87428 Observation care discharge
[2019-08-18 16:07] LABS: Albumin 2.9 g/dL (2.9-4.4); Alpha-1-Globulins 0.5 g/dL (0.0-0.4); Alpha-2-Globulins 1.2 g/dL (0.4-1.0); Free Kappa Light Chains 10.7 mg/L (3.3-19.4); Free Lambda Light Chains 27.4 mg/L (5.7-26.3); Gamma Globulin 0.8 g/dL (0.4-1.8); Immunoglobulin A 94 mg/dL (61-437); Immunoglobulin G 800 mg/dL (700-1600); Immunoglobulin M 73 mg/dL (15-143); PROEL- TOTAL PROTEIN 6.5 g/dL (6.0-8.5)
== END 2019-08-15 13:29 | disposition home or self-care (01) ==
LOC: ED 18:54 → PCU 21:46
PROVIDERS: Nurse Practitioner Family; Admitting Provider Hospitalist; Emergency Provider Emergency Medicine; Family Provider Family Medicine; PCP Family Medicine; Visit Provider Hospitalist
DX: I26.99 Other pulmonary embolism without acute cor pulmonale (principal); C61 Malignant neoplasm of prostate; G89.3 Neoplasm related pain (acute) (chronic); C79.51 Secondary malignant neoplasm of bone; R91.1 Solitary pulmonary nodule; C77.2 Secondary and unspecified malignant neoplasm of intra-abdominal lymph nodes; G62.9 Polyneuropathy, unspecified; K21.9 Gastro-esophageal reflux disease without esophagitis; I10 Essential (primary) hypertension; N40.1 Benign prostatic hyperplasia with lower urinary tract symptoms; R35.1 Nocturia; R77.1 Abnormality of globulin; I08.1 Rheumatic disorders of both mitral and tricuspid valves; K59.00 Constipation, unspecified; N39.3 Stress incontinence (female) (male); Z79.899 Other long term (current) drug therapy; Z79.01 Long term (current) use of anticoagulants
CPT/HCPCS: 36415; 71260; 74177; 80048; 82784; 83883; 84165; 85025; 85610; 85730; 86334; 93306; 96372; 97802; 99218; 99285; Q9967; A4216; G0378

== ENCOUNTER → 2019-08-19 09:48 | Outpatient (CLI) | payer MEDICARE, SELFPAY ==
[2019-08-12 15:17] VITALS: BMI 27.2
[2019-08-17 12:04] VITALS: BMI 27.8
--- NOTE | 2019-08-19 09:50 | NM_ITS ---
CLINICAL: 74-year-old male with reported history of known carcinoma of the prostate. WHOLE BODY 99m Tc MDP RADIONUCLIDE BONE SCINTIGRAPHY COMPARISON: CT of the abdomen-pelvis report 08/14/2019 FINDINGS: Following the intravenous administration of 25.0 mCi of 99m Tc MDP, whole body bone images reveal: 1. Multifocal increased radiopharmaceutical concentration is identified in the appendicular, axial skeletal structures, too many to individually articulate. 2. Facilitated tracer concentration is defined in the medial tibial compartment of the left knee upper cervical spine posteriorly on the right. 3. The remaining skeletal structures are scintigraphically unremarkable with normal-appearing renal images and urinary bladder activity identified. NM/Bone Scan Whole Body IMPRESSION: 1. The multifocal increase in radiopharmaceutical concentration demonstrated in the appendicular and axial skeletal structures is commensurate with disseminated skeletal metastatic disease. 2. Degenerative arthritis appears expressed in the left knee and cervical spine. Electronically Signed: Flako Benavidez DO at 9:42 EST Tel , Service support ,
== END ==
PROVIDERS: Family Provider Family Medicine; PCP Family Medicine; Referring Provider Internal Medicine Hematology & Oncology; Visit Provider Internal Medicine Hematology & Oncology
DX: C61 Malignant neoplasm of prostate (principal); C79.51 Secondary malignant neoplasm of bone; C77.9 Secondary and unspecified malignant neoplasm of lymph node, unspecified; R50.9 Fever, unspecified
CPT/HCPCS: 78306; 81002; 87086

== ENCOUNTER → 2019-09-02 14:17 | Outpatient (CLI) | payer MEDICARE, SELFPAY ==
[2019-08-19 10:36] VITALS: BMI 27.3
[2019-09-02 13:11] VITALS: BMI 26.9
--- NOTE | 2019-09-02 14:23 | MRI_ITS ---
STUDY: MRI LUMBAR SPINE WITHOUT CONTRAST REASON FOR EXAM: Male, 74 years old. Metastatic prostate cancer TECHNIQUE: Standardized fat and water weighted pulse sequences were obtained in the sagittal and axial planes. COMPARISON: CT 08/14/2019 FINDINGS: T12-L1: Normal endplates. Normal disc height, hydration and morphology. Normal bilateral facet joints. Normal central canal and bilateral lateral recesses. Normal bilateral intervertebral neural foramina. Normal lumbar lordosis. There is no substantial scoliosis. Normal conus medullaris that terminates at the T12/L1. Severe hypointensity of the vertebral bodies of the lumbar spine and sacrum corresponding to sclerotic area seen on recent CT consistent with blastic metastases. No pathologic compression fracture. L1-2: Moderate broad disc osteophyte complex produces moderate spinal stenosis with mild bilateral lateral recess stenosis and mild bilateral neural foraminal stenosis. L2-3: Moderate broad disc osteophyte complex produces moderate spinal stenosis with mild bilateral lateral recess stenosis and mild bilateral neural foraminal stenosis. L3-4: Mild bilateral facet hypertrophy with fluid in the facet joints consistent with instability and mild ligament flavum hypertrophy. 2 mm retrolisthesis of L3 on L4 with a moderate broad disc osteophyte complex produces moderate spinal stenosis with moderate bilateral lateral recess stenosis with abutment of the L4 nerve roots bilaterally and moderate bilateral neural foraminal stenosis with abutment of the exiting L3 nerve roots bilaterally. L4-5: Severe bilateral facet hypertrophy and moderate ligament flavum hypertrophy. 2 mm of anterolisthesis of L4 on L5 with a moderate broad disc osteophyte complex produces severe spinal stenosis with moderate bilateral lateral recess stenosis with abutment of the L5 nerve roots bilaterally and moderate bilateral neural foraminal stenosis with abutment of the exiting L4 nerve roots bilaterally. L5-S1: Mild broad disc osteophyte complex produces mild spinal stenosis and mild bilateral neural foraminal stenosis. Normal visualized sacral ala. Normal visualized paraspinous soft tissue structures. MRI/Spine Lumbar (Routine) IMPRESSION: 1. Extensive blastic metastases without pathologic compression fracture. 2. Moderate diffuse degenerative disc disease as described above. Electronically Signed: Flako Hernandez MD at 16:26 EST Tel , Service support ,
== END ==
PROVIDERS: Family Provider Family Medicine; PCP Family Medicine; Referring Provider Anesthesiology Pain Medicine; Visit Provider Anesthesiology Pain Medicine
DX: M54.9 Dorsalgia, unspecified (principal); C61 Malignant neoplasm of prostate; C79.51 Secondary malignant neoplasm of bone; C77.9 Secondary and unspecified malignant neoplasm of lymph node, unspecified; Z79.899 Other long term (current) drug therapy
CPT/HCPCS: 36415; 72148; 85025

== ENCOUNTER 2019-12-23 08:55 | Emergency (ER) | payer MEDICARE, SELFPAY ==
[2019-12-07 08:56] VITALS: BMI 28.9
[2019-12-23 08:56] VITALS: BP 136/75; PULSE 94; RESP 16; TEMP 36.4; O2SAT 95; BMI 27.2
--- NOTE | 2019-12-23 09:15 | RAD_ITS ---
STUDY: X-RAY CHEST REASON FOR EXAM: Male, 74 years old. FEVER TODAY, CHEMO PT, HX PROSTATE CA W/METS TECHNIQUE: Single AP portable view of the chest. COMPARISON: None. FINDINGS: The lungs are clear and expanded. There is no demonstrated pleural abnormality. Normal size heart. Normal mediastinum and fannie. Normal visualized pulmonary arteries. Normal visualized aortic arch and descending thoracic aorta. There is evidence of diffuse bony metastasis of the thoracic vertebrae. Diffuse sclerotic metastasis of the right ribs as well as the visualized portions of the scapula and bilateral humeri. There is no demonstrated abnormality of the visualized soft tissue structures of the upper abdomen. RAD/Chest 1 View (Portable) IMPRESSION: The lungs are clear. Diffuse axial and appendicular skeletal osteoblastic metastasis. Electronically Signed: Amilcar Allen, at 9:37 EDT , Service support ,
--- NOTE | 2019-12-23 09:15 | EKG12_ITS ---
Test Reason : Blood Pressure : / mmHG Vent. Rate : 088 BPM Atrial Rate : 088 BPM P-R Int : 152 ms QRS Dur : 090 ms QT Int : 350 ms P-R-T Axes : 044 -33 011 degrees QTc Int : 423 ms Normal sinus rhythm Left axis deviation Abnormal ECG Confirmed by RAYMOND CAT, SHAHANA ([id number]), editor in chief newspaper MEGAN TRIMBLE ([id number]) on 12/25/2019 12:59:23 PM Referred By: WOODY Confirmed By:EUSEBIO ANDRADE MD
--- NOTE | 2019-12-23 09:21 | ED.VISSUMM ---
- ER Visit Summary Date of Service: 12/23/19 Chief Complaint: Fever History of Present Illness: The patient is a 74 M with metastatic prostate cancer. His last chemotherapy was December 07. He presents today with a fever of 100.7. He checked his temperature because he was having chills. He has had some upper respiratory symptoms recently, cough, sore throat. No other symptoms. He recently drove from [place]. He arrived home yesterday. No air travel. No known sick contacts. He is not currently on antibiotics. He does take prednisone as part of his chemotherapy regimen. He also takes Lovenox for history of PEs. He denies any chest pain or shortness of breath. Denies hemoptysis or leg swelling. Denies any rashes, GI, or urinary symptoms. Physical Examination: Afebrile and vital signs unremarkable. Alert and oriented. No acute distress. Exam is essentially unremarkable. Heart is regular. Lungs are clear. Abdomen soft. Skin appears normal. Test Results: We will check labs, cultures, urinalysis, influenza swab, chest x-ray. Emergency Department Course and Treatment: Patient was treated with a fluid bolus. We will hold off on antibiotics for now as he is afebrile and his vitals are unremarkable. We will check his white count first. Hemoglobin stable 10.7. Absolute neutrophils 3.9. Metabolic panel unremarkable. Coags unremarkable. Urine normal. Troponin normal. Lactate 1.3. Chest x-ray showed metastatic disease. EKG showed sinus rhythm at a rate of 88. Influenza test negative. Cultures pending. Patient's work-up was reassuring. No further symptoms. I believe he is appropriate for outpatient care. I spoke with his oncologist who agreed. Patient will follow-up as an outpatient. Use [id number] remedies for pain and fever. Return for any new or worsening issues. Treatment Plan: As above Disposition: Discharge Impression: 1. Febrile illness This note was generated with [employer] dictation software. It may contain incorrect words, spelling, and punctuation that were not noted in review of the chart prior to signing ED Disposition - Plan for ED Patient: Referrals: Praful Blevins MD [Primary Care Provider] -
--- NOTE | 2019-12-23 09:25 | ED.RN ---
NO OLD EKG
[2019-12-23 09:40] LABS: Absolute Lymphocyte Count 0.78 X10^3/uL (0.83-4.51); Absolute Neutrophil Count 3.9 X10^3/uL (2.0-7.7); Basophil# 0.02 X10^3/uL; Basophil% 0.4 % (0-1); Eosinophil# 0.04 X10^3/uL; Eosinophils% 0.7 % (0-5); Hematocrit 35.1 % (40-54); Hemoglobin 10.7 g/dL (13.0-16.5); Lymphocyte # 0.78 X10^3/ul (4.0); Lymphocyte % 13.9 % (19-41); Mean Corp Hgb Conc 30.5 g/dL (32-36); Mean Corpuscular Hgb 27.5 pg (27.0-32.0); Mean Corpuscular Volume 90.2 fL (80-94); Mean Platelet Vol. 9.2 fl (6.2-12.0); Monocyte# 0.77 X10^3/uL; Monocyte% 13.7 % (0-10); NRBC Flagged by Analyzer 0 % (0-5); Neutrophil # 3.91 X10^3/uL (2.7-7.7); Neutrophil % 69.5 % (47-70); Platelet Count 198 K/mm3 (150-450); RBC Distribution Width CV 16.3 % (11.6-14.6); RBC Distribution Width SD 53.2 fl (35.1-43.9); Red Blood Count 3.89 M/mm3 (4.6-6.2); White Blood Count 5.6 K/mm3 (4.4-11.0)
[2019-12-23 09:59] LABS: ALB/GLOB Ratio 0.8 RATIO (0.9-2.4); AST(SGOT) 69 U/L (15-37); Alanine Aminotransfer ALT/SGPT 16 U/L (16-61); Albumin, Serum 3.1 g/dL (3.2-5.0); Alkaline Phosphatase 141 U/L (45-117); Anion Gap 4 (5-15); BUN 17 mg/dL (7-18); BUN/Creat Ratio 22.5 RATIO (10-20); Calcium,Total 8.5 mg/dL (8.5-10.1); Chloride 109 mmol/L (98-107); Creatinine, Serum 0.76 mg/dL (0.70-1.30); EST Glomerular Filtration Rate 107 mL/min (>60); Est Glom Filt Rate - Afr Amer 129 mL/min (>60); Estimated Creatinine Clearance 66.92 ml/min; Globulin 3.7 g/dL (2.2-4.2); Glucose 137 mg/dL (74-106); Protein, Total 6.8 g/dL (6.4-8.2); Sodium Level 140 mmol/L (136-145)
[2019-12-23 10:07] LABS: Lactic Acid 1.3 mmol/L (0.4-1.9)
[2019-12-23 10:15] LABS: International Normalized Ratio 1.1; Prothrombin Time (Protime)PT. 13.7 SECONDS (11.7-14.9)
[2019-12-23 10:16] LABS: Partial Thromboplast Time 30.5 Seconds (24.1-36.2)
[2019-12-23 10:57] VITALS: BP 115/76; PULSE 84; RESP 15; O2SAT 94
[2019-12-23 10:58] VITALS: TEMP 37.2
[2019-12-23 11:57] LABS: Bacteria 0 SEEN /hpf (None Seen); Mucous, Urine 0 SEEN /hpf (<or=2+); Red Blood Cells-Urine 0 SEEN /hpf (0-5); Squamous Epithelial Cells - UA 0 SEEN /hpf (0-5); White Blood Cells 0 SEEN /hpf (0-5)
[2019-12-23 12:00] VITALS: BP 113/67; PULSE 88; RESP 19; TEMP 37; O2SAT 92
[2019-12-23 12:09] LABS: Color, Urine Yellow (Yellow); Glucose, Dipstick Normal (Normal); Ketone-Dipstick Negative (Negative); Leukocyte Esterase-Dipstick Negative /ul (Negative); Nitrite-Dipstick Negative (Negative); Occult Blood-Urine Negative /ul (Negative); Protein-Dipstick Negative (Negative); Urine Bilirubin Dipstick Negative (Negative); Urine Clarity Clear (Clear); Urine Urobilinogen Normal (Normal)
[2019-12-23 13:24] VITALS: BP 133/82; PULSE 94; RESP 15; TEMP 37.1; O2SAT 96
--- NOTE | 2019-12-23 13:32 | ED.DEP ---
ED Disposition - Plan for ED Patient: Instructions: FEBRILE ILLNESS, Uncertain Cause (Adult) Referrals: Praful Blevins MD [Primary Care Provider] -
[2019-12-23 13:52] VITALS: PULSE 91; RESP 15; O2SAT 96
== END 2019-12-23 13:53 | disposition home or self-care (01) ==
LOC: ED 09:26
PROVIDERS: Emergency Provider Emergency Medicine; PCP Family Medicine
DX: R50.9 Fever, unspecified (principal); R05 Cough; J02.9 Acute pharyngitis, unspecified; C61 Malignant neoplasm of prostate; C79.51 Secondary malignant neoplasm of bone; Z79.01 Long term (current) use of anticoagulants; Z79.899 Other long term (current) drug therapy; Z86.711 Personal history of pulmonary embolism
CPT/HCPCS: 36415; 71045; 80053; 81001; 83605; 84484; 85025; 85610; 85730; 87040; 87086; 87804; 93005; 96360; 99284; J7040; A4216

== ENCOUNTER → 2020-01-07 09:22 | Outpatient (CLI) | payer MEDICARE, SELFPAY ==
[2020-01-04 13:23] VITALS: BMI 28.0
--- NOTE | 2020-01-07 09:23 | NM_ITS ---
CLINICAL: 74-year-old male with reported history of carcinoma of the prostate. WHOLE BODY 99m Tc MDP RADIONUCLIDE BONE SCINTIGRAPHY COMPARISON: CT of the abdomen-pelvis report of 08/14/2019 FINDINGS: Following the intravenous administration of 25.4 mCi of 99m Tc MDP, whole body bone images reveal: 1. Innumerable foci of increased radiopharmaceutical concentration are defined in the appendicular and axial skeletal structures, too many to individually articulate. 2. Enhanced tracer concentration is defined in the knee articulations bilaterally, upper cervical spine posteriorly on the right, right-left hands. 3. The remaining skeletal structures are scintigraphically unremarkable with normal-appearing renal images and urinary bladder activity identified. NM/Bone Scan Whole Body IMPRESSION: 1. The increased radiopharmaceutical concentration observed in the appendicular and axial skeletal structures is commensurate with diffuse osseous metastatic disease. 2. Degenerative arthritis appears expressed in the bilateral knees, cervical spine, hands bilaterally. Electronically Signed: Flako Benavidez DO at 23:16 EDT Tel , Service support ,
== END ==
PROVIDERS: PCP Family Medicine; Referring Provider Internal Medicine Hematology & Oncology; Visit Provider Internal Medicine Hematology & Oncology
DX: C61 Malignant neoplasm of prostate (principal); C79.51 Secondary malignant neoplasm of bone; C77.9 Secondary and unspecified malignant neoplasm of lymph node, unspecified; R91.8 Other nonspecific abnormal finding of lung field
CPT/HCPCS: 78306

== ENCOUNTER → 2020-04-25 08:46 | Outpatient (CLI) | payer MEDICARE, SELFPAY ==
[2020-04-18 13:23] VITALS: BMI 28.3
--- NOTE | 2020-04-25 08:48 | NM_ITS ---
CLINICAL: 75-year-old male with reported history of carcinoma of the prostate WHOLE BODY 99m Tc MDP RADIONUCLIDE BONE SCINTIGRAPHY COMPARISON: Previous whole body bone scintigraphy study dated 01/07/2020 FINDINGS: Following the intravenous administration of approximately 25.0 mCi of 99m Tc MDP, whole body bone images reveal: 1. Multifocal increased radiopharmaceutical concentration remains apparent in the appendicular and axial skeletal structures with current coalesced increased uptake noted in the distal left femoral diaphysis-metaphysis and extended uptake defined in the right mid and distal humeral diaphysis with otherwise no significant interval change. 2. The remaining skeletal structures are scintigraphically unremarkable with normal-appearing renal images and urinary bladder activity identified. NM/Bone Scan Whole Body IMPRESSION: 1. The increase in radiopharmaceutical concentration persistently defined in the appendicular and axial skeletal structures remains consistent with diffuse skeletal metastatic disease. 2. Overall compared to the previous whole body bone scintigraphy study dated 01/07/2020, there is minimal interim change with overall relative scintigraphic stability. Electronically Signed: Flako Benavidez DO at 22:36 EDT Tel , Service support ,
== END ==
PROVIDERS: PCP Family Medicine; Referring Provider Internal Medicine Hematology & Oncology; Visit Provider Internal Medicine Hematology & Oncology
DX: C61 Malignant neoplasm of prostate (principal); C79.51 Secondary malignant neoplasm of bone
CPT/HCPCS: 78306

== ENCOUNTER → 2020-06-10 12:34 | Outpatient (CLI) | payer MEDICARE, SELFPAY ==
[2020-05-26 11:02] VITALS: BMI 28.2
[2020-06-07 13:32] VITALS: BMI 27.9
--- NOTE | 2020-06-10 12:37 | CT_ITS ---
STUDY: CT CHEST WITH CONTRAST REASON FOR EXAM: Male, 75 years old. PROSTATE CA WITH PROSTATECTOMY/CHEMO/RADIATION AND METS TO THE BONES RADIATION DOSAGE (If Supplied By Facility): CTDIvol = ( 15.76 ) mGy, DLP = ( 1307.73 ) mGycm TECHNIQUE: Transaxial imaging was performed following intravenous administration of IV 100ML ISOVUE 300. Multiplanar coronal and sagittal images were reformatted. Individualized dose optimization techniques were used for this CT. COMPARISON: Comparison is made with prior study dated 08/14/2019. FINDINGS: The previously seen pleural-based mass in the axillary region of the right upper lobe has decreased in size. It presently measures 1 cm x 0.85 cm. The previously seen nodule in the posterior aspect of the right upper lobe abutting the minor fissure as decreased in size. It presently measures 1.1 cm x 0.8 cm. There is no demonstrated pleural abnormality. There are calcifications of the coronary arteries. Normal mediastinum. Normal hilar regions. Normal enhanced pulmonary arteries. Mild aneurysmal dilatation of the root of the descending aorta with a transverse dimension of 4.3 cm. Diffuse osteosclerotic metastasis of the axial and appendicular skeletons. There is no demonstrated abnormality of the visualized upper abdomen. CT/Chest WITH Contrast IMPRESSION: Interval decrease in size of the previously seen nodular densities in the right upper lobe. Electronically Signed: Amilcar Allen, at 15:01 EDT , Service support ,
--- NOTE | 2020-06-10 12:37 | CT_ITS ---
STUDY: CT ABDOMEN AND PELVIS WITH CONTRAST REASON FOR EXAM: Male, 75 years old. PROSTATE CA WITH PROSTATECTOMY/CHEMO/RADIATION AND METS TO THE BONES RADIATION DOSAGE (If Supplied By Facility): CTDIvol = ( 15.76 ) mGy, DLP = ( 1307.73 ) mGycm TECHNIQUE: Transaxial images were obtained from the dome of the diaphragm to the symphysis pubis without oral contrast. IV 100ML ISOVUE 300 was administered. Sagittal and coronal images were reconstructed. Individualized dose optimization techniques were used for this CT. COMPARISON: None. FINDINGS: The visualized lung bases are unremarkable. The visualized portions of the heart are within normal limits. Normal liver. Normal gallbladder and extrahepatic biliary system. Normal spleen. Normal pancreas. Normal bilateral adrenal glands. Normal right kidney. Stable small cyst in the lower pole of the left kidney. There is a small hiatal hernia. Normal small intestine. Normal colon. The appendix is visualized and appears normal. There is diffuse atherosclerotic calcification of the abdominal aorta, without a demonstrated aneurysm. Normal inferior vena cava. The previously seen intraluminal filling defect in the inferior vena cava is not seen at this time. Normal retroperitoneum. Normal urinary bladder. The patient is status post prostatectomy. Small ventral hernia containing nondilated small bowel loop. Once again, there is evidence of diffuse osteoblastic metastasis involving the axial as well as the appendicular skeleton. CT/Abdomen/Pelvis WITH Contrast IMPRESSION: Stable examination. Electronically Signed: Amilcar Allen, at 14:57 EDT , Service support ,
--- NOTE | 2020-06-10 12:55 | RAD_ITS ---
STUDY: X-RAY - LEFT KNEE REASON FOR EXAM: Male, 75 years old. Large update seen on bone scan TECHNIQUE: 4 view(s) of the knee. COMPARISON: Bone scan 04/25/2020 FINDINGS: Ill-defined diffuse sclerosis of the distal femur. Tibia normal. Apparent old fibular fracture. Normal proximal tibiofibular articulation. There is severe degenerative arthrosis of the medial femorotibial compartment with severe joint space narrowing. Normal lateral femorotibial compartment. Normal patellofemoral articulation. The soft tissue structures are unremarkable. RAD/Knee 4 or More Views IMPRESSION: Sclerosis distal femur. Metastatic disease not excluded. Severe DJD medial compartment. Old fibular fracture. Electronically Signed: Chencho Amador MD at 20:00 EDT , Service support ,
== END ==
PROVIDERS: PCP Family Medicine
DX: C61 Malignant neoplasm of prostate (principal); C79.51 Secondary malignant neoplasm of bone; M17.12 Unilateral primary osteoarthritis, left knee; I26.99 Other pulmonary embolism without acute cor pulmonale
CPT/HCPCS: 71260; 73564; 74177; Q9967

== ENCOUNTER → 2020-08-24 15:00 | Outpatient (CLI) | payer MEDICARE, SELFPAY ==
[2020-07-21 15:22] VITALS: BMI 28.7
[2020-08-18 14:27] VITALS: BMI 27.8
--- NOTE | 2020-08-24 15:07 | CT_ITS ---
STUDY: CT ABDOMEN AND PELVIS WITH CONTRAST REASON FOR EXAM: Male, 75 years old. PROSTATE CANCER WITH BONE METS. Radical prostatectomy and chemo 2011. HTN-rx controlled. Radiation treatment to left femur and lt shoulder RADIATION DOSAGE (If Supplied By Facility): CTDIvol = ( 14.08 ) mGy, DLP = ( 1509.54 ) mGycm TECHNIQUE: Transaxial images were obtained from the dome of the diaphragm to the symphysis pubis without oral contrast. Oral and amp; IV Readi-CAT and amp; 100mL Isovue-300 was administered. Sagittal and coronal images were reconstructed. Individualized dose optimization techniques were used for this CT. COMPARISON: 08/14/2019 FINDINGS: The visualized lung bases are unremarkable. The visualized portions of the heart are within normal limits. Normal liver. Normal gallbladder and extrahepatic biliary system. Normal spleen. Normal pancreas. 3 cm new left adrenal nodule. Normal right kidney. Mild right hydroureter. There is a 3 mm stone within the distal right ureter Up to1.3 cm cysts in the left kidney. Normal visualized stomach. Normal small intestine. Normal colon. The appendix is visualized and appears normal. Calcified abdominal aorta. Normal inferior vena cava. Normal retroperitoneum. Normal urinary bladder. Fatty density in the inguinal canals. Small umbilical hernia containing a loop of small bowel. Diffuse sclerosis of the osseous structures compatible with metastasis. CT/Abdomen/Pelvis WITH Contrast IMPRESSION: Diffuse bony metastasis. Partially obstructive distal right ureteral stone. Small umbilical hernia. Fatty density at the inguinal canals. Left adrenal mass, new since the previous study, likely metastasis. Electronically Signed: Cj Perez DO at 20:12 EST Tel [phone], Service support ,
--- NOTE | 2020-08-24 15:07 | RAD_ITS ---
STUDY: X-RAY CHEST REASON FOR EXAM: Male, 75 years old. Prostate cancer. TECHNIQUE: PA and lateral views of the chest. COMPARISON: Comparison is made with prior study dated 12/23/2019. FINDINGS: Hyperinflation. The lungs are clear. There is no demonstrated pleural abnormality. Normal size heart. Normal mediastinum and fannie. Normal visualized pulmonary arteries. Normal visualized aortic arch and descending thoracic aorta. There is evidence of diffuse osteoblastic metastasis involving the axial as well as the appendicular skeletons. There is no demonstrated abnormality of the visualized soft tissue structures of the upper abdomen. RAD/Chest PA and Lateral IMPRESSION: Diffuse sclerotic metastasis involving the axial and appendicular skeleton. The lungs are clear. Electronically Signed: Amilcar Allen, at 15:41 EST , Service support ,
== END ==
PROVIDERS: PCP Family Medicine
DX: C61 Malignant neoplasm of prostate (principal); C79.51 Secondary malignant neoplasm of bone
CPT/HCPCS: 71046; 74177; Q9967

== ENCOUNTER → 2020-08-26 10:24 | Outpatient (CLI) | payer MEDICARE, SELFPAY ==
[2020-07-21 15:22] VITALS: BMI 28.7
[2020-08-18 14:27] VITALS: BMI 27.8
--- NOTE | 2020-08-26 10:29 | NM_ITS ---
CLINICAL: 75-year-old male with reported history of carcinoma of the prostate. WHOLE BODY 99m Tc MDP RADIONUCLIDE BONE SCINTIGRAPHY COMPARISON: Previous whole body bone scintigraphy study dated 04/25/2020, CT of the abdomen report 08/24/2020 FINDINGS: Following the intravenous administration of 26.2 mCi of 99m Tc MDP, whole body bone images reveal: 1. Diffuse heterogeneous increased radiopharmaceutical concentration remains apparent throughout the appendicular and axial skeletal structures with newly identified increased uptake noted in the bilateral proximal tibia, the left proximal fibular diaphysis, multifocally apparent in the right-left frontal calvarium, left lacrimal bone. 2. The remaining skeletal structures are scintigraphically unremarkable with normal-appearing renal images and urinary bladder activity identified. NM/Bone Scan Whole Body IMPRESSION: 1. Both redefined and newly apparent foci of increased radiopharmaceutical concentration defined in the appendicular and axial skeletal structures, right-left neena-calvarium is commensurate with osteoblastic turnover attributed to diffuse osseous metastatic disease. 2. Overall compared to the previous whole body bone scintigraphy study dated 04/25/2020, there is interval continued progression of defined skeletal metastatic disease. Electronically Signed: Flako Benavidez DO at 8:06 EST Tel , Service support ,
== END ==
PROVIDERS: PCP Family Medicine
DX: C61 Malignant neoplasm of prostate (principal); C79.51 Secondary malignant neoplasm of bone
CPT/HCPCS: 78306

== ENCOUNTER → 2020-09-23 16:41 | Outpatient (CLI) | payer MEDICARE, SELFPAY ==
[2020-08-18 14:27] VITALS: BMI 27.8
[2020-09-15 14:01] VITALS: BMI 25.5
[2020-09-20 11:37] VITALS: BMI 25.3
--- NOTE | 2020-09-23 16:43 | CT_ITS ---
STUDY: CT CHEST WITH CONTRAST REASON FOR EXAM: Male, 75 years old. METASTATIC PROSTATE CA TO BONE/NEW CHEMO STARTED LAST WEEK RADIATION DOSAGE (If Supplied By Facility): CTDIvol = ( 15.74 ) mGy, DLP = ( 629.03 ) mGycm TECHNIQUE: Transaxial imaging was performed following intravenous administration of IV 100mL Isovue-370. Multiplanar coronal and sagittal images were reformatted. Individualized dose optimization techniques were used for this CT. COMPARISON: 06/10/2020 FINDINGS: Noncalcified nodule in the lateral right upper lobe abutting the pleural surface on image 38 is stable since the prior study measuring 10 x 9 mm. Slight localized reticulation of the posterior right upper lobe on image 63 is stable. No new pulmonary nodule. There is no demonstrated pleural abnormality. Normal heart and pericardium. Normal mediastinum. Normal hilar regions. Normal enhanced pulmonary arteries. Normal aorta arch and descending thoracic aorta. Diffuse osteosclerosis throughout the appendicular and axial skeleton, overall similar. Mild left hydronephrosis is partially visualized but grossly similar recent abdomen/pelvis CT of 08/24/2020. Left adrenal gland mass measuring 3.3 x 3.8 cm has increased in size. CT/Chest WITH Contrast IMPRESSION: 1. Stable right upper lobe pulmonary nodules. 2. Diffuse osseous sclerotic metastasis. 3. Left adrenal gland metastasis has increased in size since abdomen/pelvis CT of 08/24/2020. Electronically Signed: Chuy Noyola MD ([facility]) at 15:01 EST , Service support ,
== END ==
PROVIDERS: PCP Family Medicine; Referring Provider Internal Medicine Hematology & Oncology; Visit Provider Internal Medicine Hematology & Oncology
DX: C61 Malignant neoplasm of prostate (principal); C77.9 Secondary and unspecified malignant neoplasm of lymph node, unspecified; C79.51 Secondary malignant neoplasm of bone; E27.8 Other specified disorders of adrenal gland; R91.8 Other nonspecific abnormal finding of lung field
CPT/HCPCS: 71260; Q9967

== ENCOUNTER → 2020-10-24 14:18 | Outpatient (CLI) | payer MEDICARE, SELFPAY ==
[2020-08-18 14:27] VITALS: BMI 27.8
[2020-10-11 11:21] VITALS: BMI 25.5
[2020-10-19 12:59] VITALS: BMI 25.1
--- NOTE | 2020-10-24 14:21 | CT_ITS ---
STUDY: RIGHT LOWER EXTREMITY CT SCAN REASON FOR EXAM: Male, 75 years old. BONE METS, HX PROSTATE CANCER RADIATION DOSAGE (If Supplied By Facility): CTDIvol = ( 15.35 ) mGy, DLP = ( 1505.09 ) mGycm. Individualized dose optimization techniques were used for this CT.? TECHNIQUE: Axial multidetector CT scan of the right lower extremity. Coronal and sagittal reformatted images. COMPARISON: None. FINDINGS: Diffuse sclerotic bone metastasis involving the right hemipelvis, right femur, right proximal tibia and right proximal fibula. Subtle incomplete fracture line at the greater trochanter (axial image 43 series 3). No acute dislocation. Moderate pubic symphysis arthrosis. Mild/moderate right hip osteoarthritis. Moderate right knee osteoarthritis predominating medially. Mild urinary bladder wall thickening (axial image 37 series 2). Minimal mesenteric stranding. Vascular calcifications. No aneurysm. Shotty intraabdominal/pelvic and inguinal lymph nodes, none of which appear pathologically enlarged. No acute muscle abnormality. No significant muscle atrophy. CT/Extremity Lower without Contra IMPRESSION: Diffuse sclerotic metastasis with subtle greater trochanter incomplete fracture line (correlate pain and consider MRI evaluation) Mild urinary bladder wall thickening (exclude cystitis clinically; correlate urinalysis) Minimal nonspecific mesenteric stranding Small intra-abdominal and inguinal lymph nodes Osseous degenerative changes, as above Electronically Signed: Sylvester Bacon DO at 12:16 EST Tel , Service support ,
== END ==
PROVIDERS: PCP Family Medicine; Referring Provider Student in an Organized Health Care Education/Training Program; Visit Provider Student in an Organized Health Care Education/Training Program
DX: C79.51 Secondary malignant neoplasm of bone (principal); Z85.46 Personal history of malignant neoplasm of prostate
CPT/HCPCS: 73700